=== PATIENT | female | born 1975 | race Caucasian/White ===

== ENCOUNTER 2023-09-11 10:03 | Day surgery (SDC) | payer MEDICAID ==
[~2023-09-11] VITALS: Ht 152.4 cm; Wt 86.2 kg
[2023-09-11 12:45] LABS: HCG,QUAL RESULT NEGATIVE (NEGATIVE)
[2023-09-11] MEDS ORDERED: WATER FOR IRRIGATION,STERILE 1,000 ML IRRIG.SOLN IR ONE (13:06)
[2023-09-11] MEDS ORDERED: PROPOFOL 200MG/ 20ML VIAL (DIPRIVAN) IV ONE (13:06)
[2023-09-11] MEDS ORDERED: SEVOFLURANE 15 MIN GAS INH ONE (13:06)
[2023-09-11] MEDS ORDERED: fentaNYL CITRATE/PF 100 MCG/2 ML AMP ONE (13:06)
[2023-09-11] MEDS ORDERED: NS 1000 ML IV.SOLN IV ONE (13:06)
[2023-09-11] MEDS ORDERED: KETOROLAC TROMETHAMINE 30 MG VIAL ONE (13:06)
[2023-09-11] MEDS ORDERED: ONDANSETRON HCL 4 MG/2 ML VIAL ONE (13:06)
[2023-09-11] MEDS ORDERED: MIDAZOLAM HCL/PF 2 MG/2 ML SYRINGE ONE (13:06)
[2023-09-11 13:15] VITALS: O2SAT 100
[2023-09-11] MEDS ORDERED: IBUPROFEN 800 MG TABLET PO PRN (13:30)
[2023-09-11] MEDS ORDERED: ONDANSETRON HCL 4 MG/2 ML VIAL IVP PRN (13:30)
[2023-09-11] MEDS ORDERED: HYDROmorphone 1 MG/ML INJ. CARTRIDGE IVP PRN (13:30)
[2023-09-11] MEDS ORDERED: METOCLOPRAMIDE HCL 10 MG/2 ML VIAL IVP PRN (13:30)
[2023-09-11] MEDS ORDERED: KETOROLAC TROMETHAMINE 30 MG VIAL IVP PRN (13:30)
[2023-09-11 18:11] VITALS: BP_SYST 141; PULSE 81; RESP 17
== END 2023-09-11 16:35 | disposition home or self-care (01) ==
LOC: SDS 10:03 → SMU 10:04 → SDS 16:35
PROVIDERS: ATTEND Obstetrics & Gynecology
DX: N92.0 Excessive and frequent menstruation with regular cycle (principal); D25.1 Intramural leiomyoma of uterus; I10 Essential (primary) hypertension; E78.5 Hyperlipidemia, unspecified; D64.9 Anemia, unspecified; Z87.891 Personal history of nicotine dependence; Z79.899 Other long term (current) drug therapy
CPT/HCPCS: 87081; 58563; 84703; J1885; J3465; J2405; J2704; J3010; J7030